=== PATIENT | female | born 1940 | race Caucasian/White ===

== ENCOUNTER 2018-06-28 21:37 | Observation (INO) ==
--- NOTE | 2018-06-28 22:33 | ED ---
HPI General Chief Complaint: Altered Mental Status Stated Complaint: AMS Time Seen by Provider: 06/28/18 21:49 Source: patient and family Mode of arrival: ambulatory Limitations: no limitations and altered mental status History of Present Illness HPI narrative: The patient is a 77-year-old female. She has a history of mild Alzheimer's disease. She follows with Dr. Plummer of neurology.. The patient's main problem is forgetfulness. Today the patient had a cough with congestion. The patient received an [id number] daytime cold medication. A nighttime cold medication was given a few hours prior to ER arrival. It was after the nighttime cold medication was given that the patient became somewhat unresponsive. For example the would ask the patient questions that she would not respond appropriately. He was concerned so brought the patient here and she was very sluggish stand up and walk to the car. Normally the patient is conversant and relatively independent. NIH stroke scale was performed by the nurse immediately upon arrival and there was no focal deficit. NIH stroke scale was performed by the undersigned immediately upon entry into the room and no focal deficit was appreciated. MD complaint: altered mental status and decreased responsiveness Onset (ago): hour(s) (2) Severity: mild Context: other (OVER THE COUNTER COLD MEDICATION) Related Data Home Medications Medication Instructions Recorded Confirmed aspirin 325 mg PO DAILY 06/28/18 06/28/18 calcium citrate 400 mg PO DAILY 06/28/18 06/28/18 donepezil 10 mg PO DAILY 06/28/18 06/28/18 flaxseed oil 1,000 mg PO DAILY 06/28/18 06/28/18 memantine 10 mg PO BID 06/28/18 06/28/18 oxybutynin chloride 15 mg PO DAILY 06/28/18 06/28/18 simvastatin 20 mg PO QPM 06/28/18 06/28/18 Allergies Allergy/AdvReac Type Severity Reaction Status Date / Time adhesive Allergy Intermediate REDNESS Verified 06/28/18 21:53 Review of Systems Except as stated in HPI: all other systems reviewed are negative Constitutional Reports as per HPI and Denies fever(s) Respiratory Reports cough, Denies dyspnea and Denies stridor PMFSH Social History Social History Second Hand Smoke Exposure: No Smoking Status: Never smoker How Often Do You Have a Drink Containing Alcohol: Never Recent Travel in [facility] within the Last 8 Weeks: No Recent Out of Country Travel within the Last 8 Weeks: No Immunization History Tetanus Immunization: Unsure Hx Influenza Vaccine This Season: No Exam Narrative Exam Narrative: GENERAL: Well-nourished well-developed 77-year-old female no acute distress SKIN: Focused skin assessment warm/dry. HEAD: Atraumatic. Normocephalic. EYES: Pupils equal and round. No scleral icterus. No injection or drainage. ENT: No nasal bleeding or discharge. Mucous membranes pink and moist. NECK: Trachea midline. No JVD. CARDIOVASCULAR: Regular rate and rhythm. No murmur appreciated. RESPIRATORY: No accessory muscle use. Clear to auscultation. Breath sounds equal bilaterally. GASTROINTESTINAL: Abdomen soft, non-tender, nondistended. Hepatic and splenic margins not palpable. MUSCULOSKELETAL: No obvious deformities. No clubbing. No cyanosis. No edema. PSYCHIATRIC: Appropriate mood and affect; insight and judgment normal. Neuro General: alert, awake, oriented x3, moves all extremities, no focal motor deficits and CN's II-XI intact bilaterally Cranial Nerves: CN's II-XI intact bilaterally Cognition: normal cognition Speech: speech normal Other: Speech is normal. The patient is forgetful and struggles with repetition of the sentence "he cannot is no longer tricks." states that is normal for the patient. Course Initial Documented Vital Signs Temperature 100 F H 06/28/18 21:40 Pulse Rate 71 06/28/18 21:40 Respiratory Rate 14 06/28/18 21:40 Blood Pressure 193/66 H 06/28/18 21:40 Pulse Oximetry 92 L 06/28/18 21:40 Last Documented Vital Signs Temperature 100 F H 06/28/18 21:40 Pulse Rate 71 06/28/18 21:40 Respiratory Rate 14 06/28/18 21:40 Blood Pressure 193/66 H 06/28/18 21:40 Pulse Oximetry 92 L 06/28/18 21:40 Medical Decision Making MDM Narrative Medical decision making narrative: has repeatedly stated that symptoms have resolved. Started after the patient ingested a nighttime kohb-zzr-[id number] cold medication which includes diphenhydramine, a significant sedative. It seems likely that this is the etiology of the patient's altered mental status as there is no focal deficit. She is well-appearing overall. We discussed in detail the benefits of doing a workup which would include infectious or metabolic causes. A TIA cannot be totally excluded. This was discussed with her in detail at 10:10 PM. He verbalized understanding and stated he would return right away should there be any change in mental status. He understood furthermore the without doing the additional workup we cannot know 100% etiology of patient's altered mental status. Discharge Plan Discharge Disposition Patient Disposition: 01 Discharge Home Discharge Condition Condition: Stable Discharge Order Discharge Orders: Discharge Order (Routine); Ordered 06/28/18 Ordered By: Rosendo Queen Discharge Details Discharge Comment: PER OUR CONVERSATION WE CANNOT KNOW FOR CERTAIN THE CAUSE OF YOUR 'S ALTERED MENTAL STATUS. IT IS LIKELY DUE TO OVER THE COUNTER MEDICATION BUT WITHOUT PERFORMING TESTS, A MINI-STROKE OR INFECTION IS STILL A POSSIBILITY AMONG OTHER CAUSES. PLEASE DO NOT HESITATE TO RETURN TO THE ED WITHOUT DELAY FOR ANY CHANGE IN YOUR 'S MENTAL STATUS. Diagnosis: Altered mental status, Drug side effects, Diphenhydramine adverse reaction, Dextromethorphan adverse reaction Physicians Team ED Provider: Rosendo Queen Rxs /Orders / Referrals /Forms Prescriptions: No Action oxybutynin chloride 15 mg Tablet Extended Release 24hr 15 mg PO DAILY RF: 0 aspirin 325 mg Tablet 325 mg PO DAILY RF: 0 donepezil 10 mg Tablet 10 mg PO DAILY RF: 0 flaxseed oil 1,000 mg Capsule 1,000 mg PO DAILY RF: 0 simvastatin 20 mg Tablet 20 mg PO QPM RF: 0 calcium citrate 200 mg (950 mg) Tablet 400 mg PO DAILY RF: 0 memantine 10 mg Tablet 10 mg PO BID RF: 0 Referrals: Kassy Plummer MD [Physician] - 3 Days Discharge Instructions Patient Printed Instructions: Altered Mental Status (ED), Diphenhydramine (By mouth), Dextromethorphan (By mouth) Status ED Status: With Doctor
--- NOTE | 2018-06-28 23:22 | ED ---
HPI General Chief Complaint: Altered Mental Status Stated Complaint: AMS Time Seen by Provider: 06/28/18 21:49 Source: patient and family Mode of arrival: ambulatory Limitations: no limitations and altered mental status History of Present Illness HPI narrative: 77 years old female complains of coughing congestion and generalized malaise and weakness. Patient states that the symptoms started this morning. Patient denies any headache. Patient denies any earaches or sore throat. Patient states the cough is mild intermittent and nonproductive. Patient denies any chest pain or shortness of breath. Patient denies abdominal pain. Patient denies any focal weakness or numbness of extremity. Patient has been sleeping most the day today. Patient states that she has increasing lethargy this evening. Patient took oxgp-[id number] cough cold medication including Benadryl this morning and this evening. Patient was seen by ED physician earlier this evening. Patient was on the pressors being discharged and had a near syncopal episode. Patient was put back to bed and work up in process. MD complaint: altered mental status Onset (ago): hour(s) Timing confirmed by: spouse Severity: moderate Consistency of symptoms: waxing and waning Context: recent fever Associated symptoms: cough and weakness Related Data Home Medications Medication Instructions Recorded Confirmed aspirin 325 mg PO DAILY 06/28/18 06/28/18 calcium citrate 400 mg PO DAILY 06/28/18 06/28/18 donepezil 10 mg PO DAILY 06/28/18 06/28/18 flaxseed oil 1,000 mg PO DAILY 06/28/18 06/28/18 memantine 10 mg PO BID 06/28/18 06/28/18 oxybutynin chloride 15 mg PO DAILY 06/28/18 06/28/18 simvastatin 20 mg PO QPM 06/28/18 06/28/18 Allergies Allergy/AdvReac Type Severity Reaction Status Date / Time adhesive Allergy Intermediate REDNESS Verified 06/28/18 21:53 Review of Systems Except as stated in HPI: all other systems reviewed are negative PENDING SALE TO [facility] Social History Social History Second Hand Smoke Exposure: No Smoking Status: Never smoker How Often Do You Have a Drink Containing Alcohol: Never Recent Travel in [facility] within the Last 8 Weeks: No Recent Out of Country Travel within the Last 8 Weeks: No Immunization History Tetanus Immunization: Unsure Hx Influenza Vaccine This Season: No Exam Narrative Exam Narrative: GENERAL: Well-nourished, well-developed patient. SKIN: Focused skin assessment warm/dry. HEAD: Normocephalic. EYES: No scleral icterus. No injection or drainage. NECK: Supple, trachea midline. No JVD or lymphadenopathy. CARDIOVASCULAR: Regular rate and rhythm without murmurs, gallops, or rubs. RESPIRATORY: Breath sounds equal bilaterally. No accessory muscle use. GASTROINTESTINAL: Abdomen soft, non-tender, nondistended. MUSCULOSKELETAL: No cyanosis, or edema. BACK: Nontender without obvious deformity. No CVA tenderness. Neurologic exam: Patient with mild lethargy. Patient moves all extremity well. No obvious focal neurologic deficit. Course Initial Documented Vital Signs Temperature 100 F H 06/28/18 21:40 Pulse Rate 71 06/28/18 21:40 Respiratory Rate 14 06/28/18 21:40 Blood Pressure 193/66 H 06/28/18 21:40 Pulse Oximetry 92 L 06/28/18 21:40 Last Documented Vital Signs Temperature 99.6 F 06/28/18 23:35 Pulse Rate 59 L 06/28/18 23:35 Respiratory Rate 16 06/28/18 23:35 Blood Pressure 145/62 H 06/28/18 23:35 Pulse Oximetry 96 06/28/18 23:35 Medical Decision Making [facility] Narrative Medical decision making narrative: 77 years old female with low-grade fever, coughing congestion and generalized malaise and weakness and near syncope. Normal saline solution 1 L IV bolus Differential Diagnosis Differential Diagnosis: Differential diagnosis including viral syndrome, bronchitis, pneumonia, sepsis, side effect of medication. Lab Data Result diagrams: 06/28/18 23:35 06/28/18 23:35 Lab Results 06/28/18 06/28/18 06/28/18 Range/Units 23:35 23:35 23:35 CBC w Diff Auto diff final WBC 6.2 (4.0-11.0) th/mm3 RBC 3.72 L (4.00-5.30) mil/mm3 Hgb 12.0 (11.6-15.3) gm/dL Hct 35.3 (35.0-46.0) % MCV 94.7 (80.0-100.0) fL MCH 32.2 (27.0-34.0) pg MCHC 34.0 (32.0-36.0) % RDW 14.2 (11.6-17.2) % Plt Count 134 L (150-450) th/mm3 MPV 9.1 (7.0-11.0) fL Neut % (Auto) 79.2 H (16.0-70.0) % Lymph % (Auto) 10.1 (9.0-44.0) % Darke % (Auto) 10.2 H (0.0-8.0) % Eos % (Auto) 0.1 (0.0-4.0) % Baso % (Auto) 0.4 (0.0-2.0) % Neut # (Auto) 5.0 (1.8-7.7) th/mm3 Lymph # (Auto) 0.6 L (1.0-4.8) th/mm3 Darke # (Auto) 0.6 (0.0-0.9) th/mm3 Eos # (Auto) 0.0 (0.0-0.4) th/mm3 Baso # (Auto) 0.0 (0.0-0.2) th/mm3 WBC Differential . Differential Comment . PT 10.7 (9.8-11.6) sec INR 1.1 Ratio APTT 22.5 L (24.3-30.1) sec Sodium 141 (136-145) meq/L Potassium 3.8 (3.5-5.1) meq/L Chloride 106 (98-107) meq/L Carbon Dioxide 30.8 (21.0-32.0) meq/L Anion Gap 4 L (5-15) meq/L BUN 25 H (7-18) mg/dL Creatinine 0.91 (0.50-1.00) mg/dL Estimated GFR 60 L (>89) mL/min Random Glucose 133 H (74-106) mg/dL Lactic Acid (0.4-2.0) mmol/L Calcium 8.4 L (8.5-10.1) mg/dL Total Bilirubin 0.5 (0.2-1.0) mg/dL AST 30 (15-37) U/L ALT 29 (10-53) U/L Alkaline Phosphatase 78 (45-117) U/L Total Protein 6.6 (6.4-8.2) g/dL Albumin 3.4 (3.4-5.0) g/dL Urine Color (Yellw/Straw) Urine Clarity (Clear) Urine pH (5.0-8.5) Ur Specific Gray (1.002-1.035) Urine Protein (Neg-Trace) mg/dL Urine Glucose (UA) (Negative) mg/dL Urine Ketones (Negative) mg/dL Urine Occult Blood (Negative) Urine Nitrate (Negative) Urine Bilirubin (Negative) Urine Urobilinogen (Less than 2) mg/dL Ur Leukocyte Esterase (Negative) Urine RBC (0-3) /hpf Urine WBC (0-5) /hpf Ur Squamous Epith Cells (0-5) /hpf Micro UA Comment Urine Culture Comments 06/28/18 06/29/18 Range/Units 23:35 01:00 CBC w Diff WBC (4.0-11.0) th/mm3 RBC (4.00-5.30) mil/mm3 Hgb (11.6-15.3) gm/dL Hct (35.0-46.0) % MCV (80.0-100.0) fL MCH (27.0-34.0) pg MCHC (32.0-36.0) % RDW (11.6-17.2) % Plt Count (150-450) th/mm3 MPV (7.0-11.0) fL Neut % (Auto) (16.0-70.0) % Lymph % (Auto) (9.0-44.0) % Darke % (Auto) (0.0-8.0) % Eos % (Auto) (0.0-4.0) % Baso % (Auto) (0.0-2.0) % Neut # (Auto) (1.8-7.7) th/mm3 Lymph # (Auto) (1.0-4.8) th/mm3 Darke # (Auto) (0.0-0.9) th/mm3 Eos # (Auto) (0.0-0.4) th/mm3 Baso # (Auto) (0.0-0.2) th/mm3 WBC Differential Differential Comment PT (9.8-11.6) sec INR Ratio APTT (24.3-30.1) sec Sodium (136-145) meq/L Potassium (3.5-5.1) meq/L Chloride (98-107) meq/L Carbon Dioxide (21.0-32.0) meq/L Anion Gap (5-15) meq/L BUN (7-18) mg/dL Creatinine (0.50-1.00) mg/dL Estimated GFR (>89) mL/min Random Glucose (74-106) mg/dL Lactic Acid 1.0 (0.4-2.0) mmol/L Calcium (8.5-10.1) mg/dL Total Bilirubin (0.2-1.0) mg/dL AST (15-37) U/L ALT (10-53) U/L Alkaline Phosphatase (45-117) U/L Total Protein (6.4-8.2) g/dL Albumin (3.4-5.0) g/dL Urine Color Yellow (Yellw/Straw) Urine Clarity Clear (Clear) Urine pH 6.0 (5.0-8.5) Ur Specific Gray 1.020 (1.002-1.035) Urine Protein 30 H (Neg-Trace) mg/dL Urine Glucose (UA) Negative (Negative) mg/dL Urine Ketones Trace H (Negative) mg/dL Urine Occult Blood Moderate H (Negative) Urine Nitrate Negative (Negative) Urine Bilirubin Negative (Negative) Urine Urobilinogen 0.2 (Less than 2) mg/dL Ur Leukocyte Esterase Negative (Negative) Urine RBC 15-50 H (0-3) /hpf Urine WBC 0-5 (0-5) /hpf Ur Squamous Epith Cells 0-5 (0-5) /hpf Micro UA Comment Cath-culture not ind Urine Culture Comments Cath-cult not ind Imaging Data Radiologist's impression: Chest X-Ray 06/28/18 23:09 CONCLUSION: Negative examination. Discharge Plan Discharge Disposition Patient Disposition: 01 Discharge Home Discharge Condition Condition: Stable Discharge Order Discharge Orders: Discharge Order (Routine); Ordered 06/28/18 Ordered By: Rosendo Queen Discharge Details Discharge Comment: PER OUR CONVERSATION WE CANNOT KNOW FOR CERTAIN THE CAUSE OF YOUR 'S ALTERED MENTAL STATUS. IT IS LIKELY DUE TO OVER THE COUNTER MEDICATION BUT WITHOUT PERFORMING TESTS, A MINI-STROKE OR INFECTION IS STILL A POSSIBILITY AMONG OTHER CAUSES. PLEASE DO NOT HESITATE TO RETURN TO THE ED WITHOUT DELAY FOR ANY CHANGE IN YOUR 'S MENTAL STATUS. Diagnosis: Altered mental status, Drug side effects, Diphenhydramine adverse reaction, Dextromethorphan adverse reaction Physicians Team ED Provider: Rosendo Queen Primary Care Provider: Chance Guerra Rxs /Orders / Referrals /Forms Prescriptions: No Action oxybutynin chloride 15 mg Tablet Extended Release 24hr 15 mg PO DAILY RF: 0 aspirin 325 mg Tablet 325 mg PO DAILY RF: 0 donepezil 10 mg Tablet 10 mg PO DAILY RF: 0 flaxseed oil 1,000 mg Capsule 1,000 mg PO DAILY RF: 0 simvastatin 20 mg Tablet 20 mg PO QPM RF: 0 calcium citrate 200 mg (950 mg) Tablet 400 mg PO DAILY RF: 0 memantine 10 mg Tablet 10 mg PO BID RF: 0 Referrals: Kassy Plummer MD [Physician] - 3 Days Discharge Instructions Patient Printed Instructions: Dextromethorphan (By mouth), Diphenhydramine (By mouth), Altered Mental Status (ED) Additional Instructions: PER OUR CONVERSATION WE CANNOT KNOW FOR CERTAIN THE CAUSE OF YOUR 'S ALTERED MENTAL STATUS. IT IS LIKELY DUE TO OVER THE COUNTER MEDICATION BUT WITHOUT PERFORMING TESTS, A MINI-STROKE OR INFECTION IS STILL A POSSIBILITY AMONG OTHER CAUSES. PLEASE DO NOT HESITATE TO RETURN TO THE ED WITHOUT DELAY FOR ANY CHANGE IN YOUR 'S MENTAL STATUS. Status ED Status: With Nurse
--- NOTE | 2018-06-28 23:27 | XR ---
EXAM DATE: 06/28/2018 11:24 PM EDT AGE/SEX: 77 years / Female INDICATIONS: Cough with congestion. CLINICAL DATA: This is the patient's initial encounter. Patient reports that signs and symptoms have been present for 1 day and indicates a pain score of Nonresponsive. MEDICAL/SURGICAL HISTORY: Alzheimer's disease. None. COMPARISON: No prior exams available for comparison. FINDINGS: Cardiomegaly and aortic calcification. Degenerative changes of the spine. Lungs are clear. CONCLUSION: Negative examination. Electronically signed by: Noah Laurent MD 06/28/2018 11:26 PM EDT
[2018-06-28 23:49] LABS: Baso % (Auto) 0.4 % (0.0-2.0); Eos % (Auto) 0.1 % (0.0-4.0); Hematocrit 35.3 % (35.0-46.0); Lymph # (Auto) 0.6 th/mm3 (1.0-4.8); Lymph % (Auto) 10.1 % (9.0-44.0); Mean Corpuscular Hemoglobin 32.2 pg (27.0-34.0); Mean Corpuscular Volume 94.7 fL (80.0-100.0); Mean Platelet Volume 9.1 fL (7.0-11.0); Mono # (Auto) 0.6 th/mm3 (0.0-0.9); Mono % (Auto) 10.2 % (0.0-8.0); Neut % (Auto) 79.2 % (16.0-70.0); Platelet Count 134 th/mm3 (150-450); Red Blood Count 3.72 mil/mm3 (4.00-5.30); Red Cell Distribution Width 14.2 % (11.6-17.2); White Blood Count 6.2 th/mm3 (4.0-11.0)
[2018-06-28] MEDS: Sod Chloride 0.9% Inj 1,000 ML IV.CONT SCH (23:50)
[2018-06-28 23:57] LABS: Chloride 106 meq/L (98-107); Potassium 3.8 meq/L (3.5-5.1); Sodium 141 meq/L (136-145)
[2018-06-29] LABS: Calcium 8.4 mg/dL (8.5-10.1)
[2018-06-29 00:01] LABS: Albumin 3.4 g/dL (3.4-5.0); Anion Gap 4 meq/L (5-15); Blood Urea Nitrogen 25 mg/dL (7-18); Carbon Dioxide 30.8 meq/L (21.0-32.0); Glucose,Random 133 mg/dL (74-106)
[2018-06-29 00:02] LABS: Activated Partial Thrombo Time 22.5 sec (24.3-30.1); INR 1.1 Ratio; Prothrombin Time 10.7 sec (9.8-11.6)
[2018-06-29 00:04] LABS: Alanine Aminotransferase 29 U/L (10-53); Aspartate Aminotransferase 30 U/L (15-37); Glomerular Filtration Rate 60 mL/min (>89)
[2018-06-29 00:05] LABS: Total Protein 6.6 g/dL (6.4-8.2)
[2018-06-29 00:07] LABS: Alkaline Phosphatase 78 U/L (45-117)
[2018-06-29 01:39] LABS: Bilirubin,Urine Negative (Negative); Clarity,Urine Clear (Clear); Color,Urine Yellow (Yellw/Straw); Glucose,Urine (UA) Negative (Negative); Leukocyte Esterase,Urine Negative (Negative); Nitrite,Urine Negative (Negative); Urobilinogen,Urine 0.2 mg/dL (Less than 2)
[2018-06-29 01:55] LABS: Squamous Epithelial Cell,Urine 0-5 /hpf (0-5); WBC,Urine 0-5 /hpf (0-5)
[2018-06-29] MEDS ORDERED: Acetaminophen 325 MG Tablet PO PRN (02:40)
[2018-06-29] MEDS ORDERED: Bisacodyl 10 MG Supp RECTAL PRN (02:40)
[2018-06-29] MEDS ORDERED: Temazepam 15 MG Capsule PO PRN (02:40)
[2018-06-29] MEDS ORDERED: Sod Chloride 0.9% Inj 1,000 ML IV.CONT SCH (02:45)
[2018-06-29 03:10] VITALS: RESP 16
[2018-06-29] MEDS: Sod Chloride 0.9% Inj 1,000 ML IV.CONT SCH (06:29)
[2018-06-29] MEDS ORDERED: Senna/Docusate Sodium 8.6/50 MG Tablet PO SCH (09:00)
--- NOTE | 2018-06-29 12:02 | P.HPIM ---
History of Present Illness Service: [facility] Primary Care Physician: Chance Guerra MD Chief Complaint: Near syncope History of Present Illness: 77-year-old female with a medical history significant for Alzheimer's dementia, hyperlipidemia who has been experiencing a sore throat and mild cough yesterday. The patient's gave her some [id number]-[id number] cough medication and Benadryl. She became increasingly lethargic and more confused. She was seen in the emergency room. As she was being discharged, she experienced a near syncopal episode. Patient seen this morning. She reports she is feeling back to her baseline except for mild sore throat and occasional cough. at bedside reports she is at baseline. - Diagnosis (1) Medication side effects (2) Altered mental status (3) Drug side effects (4) Diphenhydramine adverse reaction (5) Dextromethorphan adverse reaction (6) Near syncope Review of Systems All other systems reviewed negative except as stated in HPI PMFSH - History History Provided By: Patient, Medical Record - Medical History Medical History: Medical History (Last Reviewed 06/29/18 @ 14:56 by Teddy Estrada MD) Alzheimer disease Arthritis H/O partial thyroidectomy High cholesterol History of hysterectomy - Surgical History Surgical History: Surgical History (Last Reviewed 06/29/18 @ 14:57 by Teddy Estrada MD) History of total knee replacement Hx of cataract surgery Hx of tonsillectomy Status post implantation of urinary electronic stimulator device - Family History Family History: Family History (Last Updated 06/29/18 @ 14:57 by Teddy Estrada MD) Other Family history non-contributory - Tobacco History Second Hand Smoke Exposure: No Smoking Status: Never smoker - Alcohol History How Often Do You Have a Drink Containing Alcohol: Never - Substance Use History Substance History: No History of Abuse - Travel History Recent Travel in the [place] Within the Last 8 Weeks: No Recent Travel Out of the Country Within the Last 8 Weeks: No - Immunization History Tetanus Immunization: Unsure Hx Influenza Vaccine This Season: No Medications and Allergies Active Medications: Active Medications Acetaminophen (Tylenol) 650 mg PO Q4H PRN PRN Reason: Temp > 100.4 Al Hydroxide/Mg Hydroxide (Milk Of Magnesia Liq) 30 ml PO Q12H PRN PRN Reason: Mild Constipation Bisacodyl (Dulcolax Supp) 10 mg RECTAL DAILY PRN PRN Reason: SEVERE CONSITIPATION Donepezil HCl (Aricept) 10 mg PO DAILY [facility] Last Admin: 06/29/18 10:10 Dose: 10 mg Sodium Chloride (Ns Inj) 1,000 mls @ 125 mls/hr IV.CONT .Q8H [facility] Last Admin: 06/29/18 06:29 Dose: 125 mls/hr Sodium Chloride (Ns Inj) 1,000 mls @ 100 mls/hr IV.CONT .Q10H [facility] Last Admin: 06/29/18 03:22 Dose: 100 mls/hr Lactulose (Lactulose Liq) 30 ml PO DAILY PRN PRN Reason: SEVERE CONSITIPATION Memantine (Namenda) 10 mg PO BID [facility] Last Admin: 06/29/18 10:11 Dose: 10 mg Ondansetron HCl (Zofran Inj) 4 mg IV.PUSH Q6H PRN PRN Reason: NAUSEA OR VOMITING Senna/Docusate Sodium (Dolly-Colace) 1 tab PO BID [facility] Last Admin: 06/29/18 10:11 Dose: Not Given Sennosides (Senokot) 17.2 mg PO Q12H PRN PRN Reason: Moderate Constipation Temazepam (Restoril) 15 mg PO HS PRN PRN Reason: INSOMNIA Allergies Allergy/AdvReac Type Severity Reaction Status Date / Time adhesive Allergy Intermediate REDNESS Verified 06/28/18 21:53 Home Medications Medication Instructions Recorded Confirmed Type aspirin 325 mg PO DAILY 06/28/18 06/28/18 History calcium citrate 400 mg PO DAILY 06/28/18 06/28/18 History donepezil 10 mg PO DAILY 06/28/18 06/28/18 History flaxseed oil 1,000 mg PO DAILY 06/28/18 06/28/18 History memantine 10 mg PO BID 06/28/18 06/28/18 History oxybutynin chloride 15 mg PO DAILY 06/28/18 06/28/18 History simvastatin 20 mg PO QPM 06/28/18 06/28/18 History Exam Vital signs: Vital Signs 06/28/18 21:40 06/28/18 22:44 06/28/18 23:09 Temperature 100 F H Pulse Rate 71 73 58 L Respiratory Rate 14 14 Blood Pressure 193/66 H 175/67 H Pulse Oximetry 92 L 93 L 96 06/28/18 23:10 06/28/18 23:35 06/29/18 00:35 Temperature 99.6 F Pulse Rate 58 L 59 L 70 Respiratory Rate 16 16 16 Blood Pressure 132/49 L 145/62 H 165/62 H Pulse Oximetry 92 L 96 96 06/29/18 01:35 06/29/18 02:35 06/29/18 04:00 Temperature 98.7 F 98.9 F Pulse Rate 62 70 53 L Respiratory Rate 16 16 18 Blood Pressure 151/74 H 149/52 H 174/67 H Pulse Oximetry 97 96 97 06/29/18 05:06 06/29/18 10:24 Temperature 99.2 F Pulse Rate 63 57 L Respiratory Rate 20 18 Blood Pressure 149/50 H 165/71 H Pulse Oximetry 95 95 Intake & Output 06/28/18 06/29/18 06/29/18 18:59 06:59 18:59 Intake Total 1375 / 1375 Balance 1375 / 1375 Weight 65.7 kg Intake: IV 1375 / 1375 NS Inj 1,000 ML @ 125 mls/hr IV 1375 / 1375 .CONT .Q8H [facility] Rx#:[id number] Other: Weight On Admission 65.7 kg Narrative: GENERAL: This is a well-nourished, well-developed patient, in no apparent distress. CARDIOVASCULAR: Normal rate and regular rhythm without murmurs, gallops, or rubs. RESPIRATORY: Good respiratory efforts. Breath sounds equal and clear to auscultation bilaterally. GASTROINTESTINAL: Abdomen soft, non-tender, non-distended. Normal active bowel sounds MUSCULOSKELETAL: Extremities without cyanosis, or edema. NEURO: Alert & Oriented x4 to person, place, time, situation. Moves all ext x4 PSYCH: Appropriate mood and affect. Results - Labs CBC & Chem 7: 06/28/18 23:35 06/28/18 23:35 Labs: Short CBC 06/28/18 Range/Units 23:35 WBC 6.2 (4.0-11.0) th/mm3 Hgb 12.0 (11.6-15.3) gm/dL Hct 35.3 (35.0-46.0) % Plt Count 134 L (150-450) th/mm3 BMP 06/28/18 23:35 Sodium 141 Potassium 3.8 Chloride 106 Carbon Dioxide 30.8 BUN 25 H Creatinine 0.91 Calcium 8.4 L Liver Function 06/28/18 Range/Units 23:35 Total Bilirubin 0.5 (0.2-1.0) mg/dL AST 30 (15-37) U/L ALT 29 (10-53) U/L Alkaline Phosphatase 78 (45-117) U/L Albumin 3.4 (3.4-5.0) g/dL Urine 06/29/18 Range/Units 01:00 Urine Color Yellow (Yellw/Straw) Urine Clarity Clear (Clear) Urine pH 6.0 (5.0-8.5) Ur Specific [place] 1.020 (1.002-1.035) Urine Protein 30 H (Neg-Trace) mg/dL Urine Glucose (UA) Negative (Negative) mg/dL - Imaging Impressions Chest X-Ray 06/28/18 23:09 CONCLUSION: Negative examination. Caprini VTE Risk Assessment Caprini VTE Risk Assessment: No/Low Risk (score <= 1) Caprini Risk Assessment Model: Point Value = 1 Point Value = 2 Point Value = 3 Point Value = 5 Age 41-60 Minor surgery BMI > 25 kg/m2 Swollen legs Varicose veins or History of unexplained or recurrent spontaneous Oral contraceptives or hormone replacement Sepsis (< 1 month) Serious lung disease, including pneumonia (< 1 month) Abnormal pulmonary function Acute myocardial infarction Congestive heart failure (< 1 month) History of inflammatory bowel disease Medical patient at bed rest Age 61-74 Arthroscopic surgery Major open surgery (> 45 min) Laparoscopic surgery (> 45 min) Malignancy Confined to bed (> 72 hours) Immobilizing plaster cast Central venous access Age >= 75 History of VTE Family history of VTE Factor V Leiden Prothrombin [id number] Lupus anticoagulant Anticardiolipin antibodies Elevated serum homocysteine Heparin-induced thrombocytopenia Other congenital or acquired thrombophilia Stroke (< 1 month) Elective arthroplasty Hip, pelvis, or leg fracture Acute spinal cord injury (< 1 month) Prophylaxis Regimen: Total Risk Factor Score Risk Level Prophylaxis Regimen 0-1 Low Early ambulation 2 Moderate Order ONE of the following: *Sequential Compression Device (SCD) *Heparin 5000 units SQ BID 3-4 Higher Order ONE of the following medications: *Heparin 5000 units SQ TID *Enoxaparin/Lovenox 40 mg SQ daily (WT < 150 kg, CrCl > 30 mL/min) *Enoxaparin/Lovenox 30 mg SQ daily (WT < 150 kg, CrCl > 10-29 mL/min) *Enoxaparin/Lovenox 30 mg SQ BID (WT < 150 kg, CrCl > 30 mL/min) AND/OR *Sequential Compression Device (SCD) 5 or more Highest Order ONE of the following medications: *Heparin 5000 units SQ TID (Preferred with Epidurals) *Enoxaparin/Lovenox 40 mg SQ daily (WT < 150 kg, CrCl > 30 mL/min) *Enoxaparin/Lovenox 30 mg SQ daily (WT < 150 kg, CrCl > 10-29 mL/min) *Enoxaparin/Lovenox 30 mg SQ BID (WT < 150 kg, CrCl > 30 mL/min) AND *Sequential Compression Device (SCD) Assessment and Plan - Assessment (1) Medication side effects Code(s): T88.7XXA - Unspecified adverse effect of drug or medicament, initial encounter Status: Acute (2) Altered mental status Code(s): R41.82 - Altered mental status, unspecified Status: Acute (3) Drug side effects Code(s): T88.7XXA - Unspecified adverse effect of drug or medicament, initial encounter Status: Acute (4) Diphenhydramine adverse reaction Code(s): T45.0X5A - Adverse effect of antiallergic and antiemetic drugs, initial encounter Status: Acute (5) Dextromethorphan adverse reaction Code(s): T48.3X5A - Adverse effect of antitussives, initial encounter Status: Acute (6) Near syncope Code(s): R55 - Syncope and collapse Status: Acute - Plan 77-year-old female with near syncope after taking nopa-hbt-zluyjol cough medication and Benadryl. The patient was admitted for observation. She ambulated with physical therapy and is back at baseline. Chest x-ray unremarkable. It appears she has a common cold. Discussed expected course and supportive care at home with her including Tylenol as needed and nonsedating medication for relief for sore throat and cough. She is discharged in good condition. Discharge patient to home Condition on discharge: Improved Regular Diet as tolerated Ad Rosalinda activity Rx written:Per med rec Follow-up with primary care physician H&P: Quality - VTE Deep Vein Thrombosis/Pulmonary Embolism Present on Admission: No
--- NOTE | 2018-06-30 07:42 | ECG ---
Date Performed: 06/28/2018 Time Performed: 23:23:21 PTAGE: 77 years EKG: Sinus rhythm RIGHT BUNDLE BRANCH BLOCK LEFT ANTERIOR FASCICULAR BLOCK VOLTAGE CRITERIA FOR LVH POSSIBLE SEPTAL MY OCARDIAL INFARCTION ABNORMAL ECG PREVIOUS TRACING : 05/16/2016 08.52 DOCTOR: Katlyn Sargent Interpretating Date/Time 06/30/2018 07:36:50
[2018-06-30] MEDS ORDERED: Tolterodine Tartrate LA 4 MG Capsule PO SCH (09:00)
[2018-06-30] MEDS ORDERED: Calcium Carbonate 500 MG Tablet PO SCH (09:00)
[2018-06-30] MEDS ORDERED: Aspirin 325 MG Tablet PO SCH (09:00)
[2018-06-30 21:31] VITALS: BP 144/66; PULSE 60; TEMP 99.4; O2SAT 95
== END 2018-06-29 16:32 | disposition home or self-care (01) ==
LOC: PHED 21:37 → PH3 21:37 → PHEDA 21:37 → PH3 06-29 05:10
PROVIDERS: ADMIT Family Medicine; ATTEND Family Medicine
DX: M47.899 Other spondylosis, site unspecified; M19.90 Unspecified osteoarthritis, unspecified site; E78.5 Hyperlipidemia, unspecified; I70.0 Atherosclerosis of aorta; R55 Syncope and collapse; F02.80 Dementia in other diseases classified elsewhere, unspecified severity, without behavioral disturbance, psychotic disturbance, mood disturbance, and anxiety; E78.00 Pure hypercholesterolemia, unspecified; G30.9 Alzheimer's disease, unspecified; Z79.82 Long term (current) use of aspirin; J00 Acute nasopharyngitis [common cold]; R41.82 Altered mental status, unspecified; T50.905A Adverse effect of unspecified drugs, medicaments and biological substances, initial encounter